=== PATIENT | male | born 1975 | race Caucasian/White ===

== ENCOUNTER 2019-08-31 07:39 | Outpatient (CLI) | payer OTHER, SELFPAY ==
--- NOTE | ~2019-08-31 | US_ITS ---
US right upper quadrant INDICATION: Follow-up gallbladder polyp PROCEDURE: Realtime right upper abdominal ultrasound. COMPARISON: No prior studies for comparison. FINDINGS: The pancreas is normal without focal mass or pancreatic ductal dilation. There is fatty in filtration of the liver. There is a 9 mm gallbladder polyp. The gallbladder is normal without stones, gallbladder wall thickening or pericholecystic fluid. Comm on bile duct measures 4 mm. No sonographic Rao's sign. IMPRESSION: 1: Gallbladder polyp measuring 9 mm. Follow-up ultrasound in 12 months recommended to assess stabilit y. 2: Fatty infiltration of the liver. Reviewed, dictated and finalized at location A. IMPRESSION: 1: Gallbladder polyp measuring 9 mm. Follow-up ultrasound in 12 months recommen ded to assess stability. 2: Fatty infiltration of the liver.
== END 2019-08-31 07:40 | disposition home or self-care (01) ==
LOC: ANHIMG 07:42
PROVIDERS: PCP Internal Medicine; Visit Provider Surgery
DX: K82.4 Cholesterolosis of gallbladder (principal); K76.0 Fatty (change of) liver, not elsewhere classified
CPT/HCPCS: 76705

== ENCOUNTER 2019-12-14 09:27 | Emergency (ER) | payer OTHER, SELFPAY ==
--- NOTE | ~2019-12-14 | US_ITS ---
EXAMINATION: US venous doppler LE EXAM DATE: 12/14/2019 11:29 INDICATION: Bilateral leg edema, swelling. TECHNIQUE: Multiple grayscale, color flow and Doppler images of the lower extremity deep venous syste ms bilaterally were obtained and reviewed. Comparison is made to prior examination from 06/19/2018. FINDINGS: Right side: The right common femoral, femoral and profunda veins demonstrate normal color flow, respi ratory variation, augmentation and compressibility. Compressibility, color flow confirmed within the right popliteal, posterior tibial, peroneal, and greater saphenous veins. Left side: The left common femoral, femoral and profunda veins demonstrate normal color flow, respira tory variation, augmentation and compressibility. Compressibility, color flow confirmed within the l eft popliteal, posterior tibial, peroneal, and greater saphenous veins. IMPRESSION: 1. No lower extremity deep venous thrombosis bilaterally. Reviewed, dictated and finalized at location A.
--- NOTE | ~2019-12-14 | XR_ITS ---
EXAMINATION: XR chest 2V DATE: 12/14/2019 10:00 INDICATION: Swelling of the legs and feet TECHNIQUE: PA and lateral views of the chest are obtained. COMPARISON: 11/27/2017 FINDINGS: The lungs are free of acute opacities. There is no pleural effusion or pneumothorax. The ca rdiomediastinal silhouette is normal. The visualized bones and soft tissues are unremarkable. IMPRESSION: 1. No acute cardiopulmonary abnormality. Reviewed, dictated and finalized at location B.
[2019-12-14 09:37] VITALS: BP 213/99; PULSE 96; RESP 22; TEMP 36.3; O2SAT 98
--- NOTE | 2019-12-14 09:41 | ECG_ITS ---
Measurements Intervals [place] Rate: 90 P: 23 UT: 192 QRS: 6 QRSD: 110 T: 29 QT: 337 QTc: 414 Interpretive Statements SINUS RHYTHM INCOMPLETE RIGHT BUNDLE BRANCH BLOCK BASELINE ARTIFACT- I, II, III, AVR, AVL, AVF BORDERLINE ECG Electronically Signed On 12-14-2019 9:57:14 CDT by Carter Shahid D.O.
[2019-12-14 10:03] LABS: Basophils Percent Auto 0.4 % (0.2-1.2); Eosinophils Absolute Auto 0.4 K/mm3 (0-0.3); Eosinophils Percent Auto 5.2 % (0-4.4); Hematocrit 40.4 % (42.0-52.0); Hemoglobin 11.7 g/dL (14.0-18.0); Immature Granulocyte Absolute 0.12 K/mm3 (0.00-0.031); Immature Granulocyte Percent A 1.6 % (0-0.5); Lymphocytes Absolute Auto 1.31 K/mm3 (0.9-3.2); Lymphocytes Percent Auto 17.6 % (18.3-44.2); Mean Corpuscular Hemoglobin 24.8 pg (26-34); Mean Corpuscular Volume 85.8 fl (80-100); Mean Platelet Volume 9.8 fl (7.4-10.4); Monocytes Absolute Auto 0.6 K/mm3 (0.1-0.6); Monocytes Percent Auto 7.7 % (2.6-8.5); Neutrophils Percent Auto 67.5 % (45.5-73.1); Nucleated Red Blood Cells Perc 0.3 % (0.0-0.2); Platelet Count Result 185 k/mm3 (150-375); Red Blood Count 4.71 M/mm3 (4.6-6.20); Red Cell Distribution Width 17.8 % (11.5-14.5); White Blood Count 7.4 K/mm3 (4.5-10.0)
[2019-12-14 10:14] LABS: Anion Gap 16.5 mmol/L (7-16); Blood Urea Nitrogen 15 mg/dL (9-20); Calcium 9.2 mg/dL (8.4-10.2); Carbon Dioxide 27 mmol/L (22-30); Chloride 97 mmol/L (98-107); Estimated CRCL calculation 151 ml/min; Estimated Glomerular Filt Rate > 60; Glucose 163 mg/dL (75-110); Potassium 3.5 mmol/L (3.4-5.0); Sodium 137 mmol/L (137-145)
[2019-12-14 10:14] LABS: INR 1.1; Prothrombin Time 13.4 Seconds (11.1-14.7)
[2019-12-14 10:15] LABS: Partial Thromboplastin Time 26.9 SECONDS (22.3-36.8)
[2019-12-14 10:28] LABS: NT Pro B Type Natriuretic Pept 147 PG/ML (5-100); Troponin I < 0.012 ng/mL (0.000-0.034)
--- NOTE | 2019-12-14 10:28 | ED.LOWEXIN ---
HPI - Extremity Injury (Lower) General Chief Complaint: Extremity Injury, Lower <Carolee Mccauley PA-C - Last Filed: 12/14/19 12:35> Stated Complaint: Swelling to lower extremities <THANH Corona Last Filed: 12/14/19 12:35> Time Seen by Provider: 12/14/19 10:10 <Carolee Mccauley PA-C - Last Filed: 12/14/19 12:35> Source: patient <THANH Corona Last Filed: 12/14/19 12:35> Mode of arrival: ambulatory <THANH Corona Last Filed: 12/14/19 12:35> Limitations: no limitations <THANH Corona Last Filed: 12/14/19 12:35> History of Present Illness HPI Narrative: This is a 44 year old male that presents to the ER for lower extremity edema x 3 months. Reports worsening recently with weeping to the lower extremities. Also reports shortness of breath which is chronic for him. Reports history of asthma and HERMILA. Denies fever, cough, history of DVT, or recent travel or surgery. <THANH Corona Last Filed: 12/14/19 12:35> Related Data Home Medications: Home Medications Medication Instructions Recorded Confirmed fluticasone propionate 50 See Rx Instructions NASAL DAILY PRN 03/15/19 mcg/actuation nasal spray,suspension lamotrigine 100 mg tablet 100 mg PO BID 03/15/19 lancets #50 each 03/15/19 lansoprazole 30 mg capsule,delayed 30 mg PO DAILY 03/15/19 release thiamine HCl (vitamin B1) 100 mg 100 mg PO DAILY 03/15/19 tablet <Carolee Mccauley PA-C - Last Filed: 12/14/19 12:35> Allergies/Adverse Reactions: Allergies Allergy/AdvReac Type Severity Reaction Status Date / Time No Known Allergies Allergy Verified 12/14/19 09:53 <THANH Corona Last Filed: 12/14/19 12:35> Review of Systems Review of Systems: Narrative: CONSTITUTIONAL: Denies fever CARDIOVASCULAR: Reports edema. Denies chest pain RESPIRATORY: Reports dyspnea. Denies cough <Carolee Mccauley PA-C - Last Filed: 12/14/19 12:35> All systems reviewed & are unremarkable except as noted in HPI and below <Carolee Mccauley PA-C - Last Filed: 12/14/19 12:35> [facility] Social History Social History: Social History Smoking status: Former smoker Smoking end date: 05/19/19 Alcohol intake: current <Carolee Mccauley PA-C - Last Filed: 12/14/19 12:35> Exam Narrative: Exam Narrative: GENERAL: Well-appearing, obese, and in no acute distress. HEAD: Normocephalic, atraumatic. EYES: EOMI. ENT: Nares clear, no rhinorrhea or epistaxis. Mucous membranes moist. Oropharynx without tonsillar hypertrophy exudate or other lesions. Bilateral TMs pearly yadav non-bulging NECK: Supple. No adenopathy or masses. No carotid bruits or JVD CHEST: Clear to auscultation. No respiratory distress. No wheezes rales or rhonchi HEART: Regular rate and rhythm. No murmur heard. Normal peripheral pulses. EXTREMITIES: Normal range of motion. 1+ pitting edema to the bilateral lower extremities with venous stasis dermatitis SKIN: Warm, dry, no rash. NEURO: No focal deficits. Alert and oriented x3. PSYCH: Normal mood and affect <Carolee Mccauley PA-C - Last Filed: 12/14/19 12:35> Course [employer]/PA Physician Supervision Attestation for Carolee Mccauley at 12:13 PM. Patient comes in for chronic leg swelling. [id number] with the patient for 15 minutes. Instructed him on the lymphedema of his legs being caused by the truncal obesity. Suggested to him that he get the gastric sleeve, and he says his Medicaid insurance will not pay for that. He said he would rather try diet and exercise. He takes an anxiety medicine at home, and has sleep apnea. Here the anxiety medicine caused hypo-ventilation and hypoxia while he was resting. We will admit him for monitoring until the benzos are out of his system. Elvia Kelly <Elvia Kelly MD - Last Filed: 12/14/19 12:26> Consultations Consultation #1: Call Dr. Franklin Vazquez for admissi
[2019-12-14 10:37] VITALS: BP 188/115; PULSE 91; RESP 26; O2SAT 91
--- NOTE | 2019-12-14 10:42 | PC.NURSE ---
Patients O2 dropped to 84% on room air at this time, patient denies being more SOB or having chest pain. Patient placed on 2L O2 NC at now at 94%. IVÁN Mccauley aware at this time.
[2019-12-14 11:33] LABS: Alveolar/Arterial O2 Gradient 33.9 mmHg; Base Excess ABG 3.3 mEq/l (+/-2.0); Carboxyhemoglobin 1.2 % THb (0-2.0); Fractional Inspired Oxygen 28 %; HCO3 ABG 30.6 mEq/l (22.0-26.0); Methemoglobin ABG 0.1 %THb (0-1.5); Oxygen Content ABG 16.9 %vol (16.0-22.0); Oxygen Saturation ABG 96.8 % (95.0-100.0); Oxyhemoglobin 94.7 % THb (90.0-100.0); PCO2 ABG 58.9 mmHg (35.0-45.0); PO2 ABG 96.2 mmHg (80.0-100.0); PO2 FiO2 Ratio Arterial Blood 3.44 %; Total Hemoglobin 12.6 g/dL (12.0-18.0); pH ABG 7.333 (7.350-7.450)
[2019-12-14 11:34] LABS: Device NASAL CANNULA; Modified Allen's Test Pass; Site Drawn LEFT RADIAL
[2019-12-14 11:37] VITALS: BP 155/85; PULSE 95; RESP 29; O2SAT 96
[2019-12-14 12:57] VITALS: BP 157/76; PULSE 94; RESP 26; O2SAT 98
== END 2019-12-14 12:58 | disposition home or self-care (01) ==
PROVIDERS: Physician Assistant; Emergency Provider Emergency Medicine; PCP Internal Medicine
DX: I89.0 Lymphedema, not elsewhere classified (principal); R09.02 Hypoxemia; G47.33 Obstructive sleep apnea (adult) (pediatric); E66.01 Morbid (severe) obesity due to excess calories; Z68.41 Body mass index [BMI] 40.0-44.9, adult; R79.89 Other specified abnormal findings of blood chemistry; J45.909 Unspecified asthma, uncomplicated; Z87.891 Personal history of nicotine dependence; I45.10 Unspecified right bundle-branch block
CPT/HCPCS: 36415; 36600; 71046; 80048; 82375; 82805; 83050; 83880; 84484; 85025; 85380; 85610; 85730; 93005; 93970; 96374; 99284; J2060

== ENCOUNTER 2020-01-12 14:08 | Outpatient (RCR) | payer OTHER, SELFPAY ==
--- NOTE | 2020-01-12 15:44 | PTOPEVAL ---
PHYSICAL THERAPY EVALUATION 01-12-2020 and HOLD PT services The PT evaluation was performed today for the diagnosis of B LE lymphedema. Rigo has open wounds over the L lower leg and calf. These need to be healed before lymphedema wraps can be initiated. Thank you for referring Rigo Ramsey to [facility].? PT treatment will be on HOLD until the wounds over his L LE are healed and a new script is received. Please review, sign, date and return this plan of care JAH. I agree with and certify that the following plan of care is medically necessary. Referring Physician Date Attending Provider: DO Jimmie MccarthyPT Outpatient Evaluation Start: 01/12/20 14:24 Document 01/12/20 14:25 GIOVANNY (Rec: 01/12/20 15:31 GIOVANNY [id number]) Therapy Assessment Status Assessment Status Assessment Status Evaluation Outpatient Past Medical History Past Medical History Source of Past Medical History Patient Neurological History Hx Seizures Yes: as child had seizures; stopped,then again start 2009- med control Hx Other Neurological Disorders Yes: concussion from fall due to seizure Cardiovascular History Hx Cardiac Catheterization Yes: few years ago-- no issues /clear Hx Hypercholesterolemia Yes: meds control Hx Hypertension Yes: meds control Respiratory History Hx Sleep Apnea Yes: have CPAP, problems using due to claustrophobia Hx Other Respiratory Disorders Yes: SOB due to panic attacks and anxiety Gastrointestinal History Hx Polyps Yes: surgical removal ~9x; non cancerous Genitourinary History Hx Genitourinary Disorders No Significant History Musculoskeletal History Hx Back Pain Yes: see neurologist for back pain and meds Hx Orthopedic Surgery Yes: R ankle ORIF; B carpal tunner surgery Feb 2019 Hx Other Musculoskeletal Disorders Yes: obesity Endocrine History Hx Diabetes Yes: new diagnosis- meds control HEENT History Hx HEENT Disorders No Significant History Psychosocial History Hx Anxiety Yes: on meds Pain History Has Past Pain Affected Your Daily Life Yes History of Long-Term Prescription Pain Yes Medication Use (Opiates) Other History Hx Other Medical Conditions Yes: staph infection R arm ~ 5 yr ago-hospitalized Evaluation Information Problem Diagnosis B LE lymphedema Onset August 2019 Subjective Information recent ER visit due to leg Query Text:As Reported By Patient/ swelling mid November; swelling Family
--- NOTE | 2020-01-13 11:44 | PCPTNOTE ---
I called pt and informed him that I left a voice message at Dr Larson's office, that pt needs wound care prior to start lymhedema wraps to L LE;
--- NOTE | 2020-01-14 16:27 | PCPTNOTE ---
I talked with pt on phone and with wound care nurse Michelle; They have orders for pt to be seen in the [facility], but awaiting insurance authorization. I called pt and told him this.
--- NOTE | 2020-03-10 10:26 | PCPTNOTE ---
PHYSICAL THERAPY DISCHARGE 03-10-2020 Attending Provider: Julien Larson DO Patient:Rigo Ramsey Date of :1975 Rigo has not returned for any further treatments since the evaluation on 01/12/2020, due to having an open wound on his leg; therefore he will be discharged at this time. The goals were not assessed. Thank you [facility]. Please review, sign, date and return this discharge summary JAH. I have been updated about the patient's current status and I agree with discharge from the above service at this time. Referring Physician Date
== END 2020-03-13 10:56 | disposition home or self-care (01) ==
LOC: ANHPT 14:08
PROVIDERS: PCP Internal Medicine; Visit Provider Internal Medicine
DX: I89.0 Lymphedema, not elsewhere classified (principal)
CPT/HCPCS: 97161

== ENCOUNTER 2020-04-24 07:37 | Outpatient (RCR) | payer OTHER, SELFPAY ==
[2020-01-26 13:57] VITALS: BMI 42.7
--- NOTE | 2020-02-01 14:17 | PCWOUND ---
Wocn Note Patient called to cancel appointment for 02-02-20 due to care troubles. Patient states he will call back when he is able to reschedule.
--- NOTE | 2020-02-22 11:32 | PCWOUND ---
WOCN NOTE Patient left message to cancel appointment for 02-23-20, and wants more home supplies ordered. left patient message to reschedule. supplies order can notbe processed until 02-25-20 due to order is for 30 days. will enter then.
--- NOTE | 2020-04-24 14:49 | PCWOUND ---
WOCN NOTE patient seen by wound care for treatment of venous stasis ulcers to the left lower leg. Wounds with large amount of exudate present that patient needs to change his dressings twice a day. Patient used 1 mepilex transfer per change (60/month), 2 ABD pads per change (120/month), and 1 kerlex roll per change (60/month).
== END 2020-04-25 23:59 | disposition home or self-care (01) ==
LOC: ANHWOC 07:37
PROVIDERS: PCP Internal Medicine; Visit Provider Internal Medicine
DX: L97.909 Non-pressure chronic ulcer of unspecified part of unspecified lower leg with unspecified severity (principal)
CPT/HCPCS: 99212; 99213; G0463

== ENCOUNTER 2020-05-02 08:09 | Outpatient (CLI) | payer OTHER, SELFPAY ==
--- NOTE | 2020-05-02 08:12 | ECHO_ITS ---
Patient Info Name: Rigo Ramsey Age: 44 years : 1975 Gender: Male Ht: 73 in Wt: 340 lbs BSA: 2.89 m2 HR: 84 bpm BP: 138 / 86 mmHg Technical Quality: Poor Exam Date: 05/02/2020 8:23 AM Exam Location: [facility] Patient Status: Outpatient Admit Date: 05/02/2020 Staff Ordering Physician: Carter Shahid DO Valet Attendant: Tamiko Leyva RDCS Attending Provider: Carter Shahid DO Referring Physician: Kleber DOUGLAS; Exam Type: CA echo dop color flow w con Study Info Indications R60.0 - Localized edema Contrast/Agitated Saline Contrast/Ag. Saline: Definity Amount: 2.00 ml Administered By: Junior Morgan RN New IV Access: Inner Forearm and Right Site Condition: No extravasation and IV removed Reason for Poor Study: patient body habitus Summary 1. Left ventricular chamber dimension is normal. 2. Definity contrast administered improved wall motion interpretation. 3. Left ventricular systolic function is normal, estimated at 55-60%. 4. There is moderately increased left ventricular wall thickness. 5. The left ventricular diastolic function is grade I diastolic dysfunction. 6. E/e' 8 is minimally elevated. 7. No pulmonary hypertension, estimated pulmonary arterial systolic pressure is 19 mmHg. Left Ventricle E/e' 8 is minimally elevated. Definity contrast administered improved wall motion interpretation. Left ventricular chamber dimension is normal. Left ventricular systolic function is normal, estimated at 55-60%. There is moderately increased left ventricular wall thickness. The left ventricular diastolic function is grade I diastolic dysfunction. Right Ventricle Right ventricular chamber dimension is normal. Right ventricular systolic function is normal. Left Atria Left atrial chamber dimension is normal. Right Atria Right atrial chamber dimension is normal. Aortic Valve The aortic valve is trileaflet. There is no aortic valve stenosis. There is no aortic valve regurgitation. Pulmonic Valve There is no pulmonic regurgitation. Mitral Valve There is no mitral valve stenosis. There is no mitral valve regurgitation. Tricuspid Valve There is no tricuspid valve regurgitation. No pulmonary hypertension, estimated pulmonary arterial systolic pressure is 19 mmHg. Pericardium/Pleural There is no pericardial effusion. Inferior Vena Cava Normal inferior vena cava with >50% collapse upon inspiration consistent with normal right atrial pressure, 5 mmHg. Aorta The aortic root size at the sinus of Valsalva is normal. Left Ventricular Outflow Tract Name Value Normal LVOT 2D LVOT Diameter 2.24 cm LVOT Doppler LVOT Peak Velocity 114.40 cm/s LVOT Peak Gradient 5 mmHg LVOT Mean Gradient 3 mmHg LVOT VTI 19.29 cm LVOT VTI/AV VTI Ratio 0.90 LVOT Stroke Volume 76.12 ml LVOT CO 5.86 l/min LVOT CI
[2020-05-02 10:46] LABS: Hematocrit 41.9 % (42.0-52.0); Hemoglobin 12.7 g/dL (14.0-18.0)
[2020-05-02 11:05] LABS: Alanine Aminotransferase 12 U/L (4-50); Albumin Level 4.6 g/dL (3.5-5.1); Alkaline Phosphatase 42 U/L (38-126); Anion Gap 15 mmol/L (8-16); Aspartate Amino Transferase 19 U/L (17-59); Bilirubin,Total 0.5 mg/dL (0.2-1.3); Blood Urea Nitrogen 42 mg/dL (9-20); Calcium 10.2 mg/dL (8.4-10.2); Carbon Dioxide 26 mmol/L (22-30); Chloride 96 mmol/L (98-107); Cholesterol 212 mg/dL (0-200); Estimated Glomerular Filt Rate 44; Glucose 186 mg/dL (75-110); HDL Direct 28 mg/dL; Potassium 4.2 mmol/L (3.4-5.0); Sodium 137 mmol/L (137-145); Triglycerides 509 mg/dL (<150)
[2020-05-02 11:16] LABS: LDL Cholesterol Direct 100 mg/dL
[2020-05-02 15:48] LABS: Iron 39 ug/dL (49-181)
[2020-05-02 16:01] LABS: Percent Iron Saturation 8 % (20-50)
[2020-05-05 14:39] LABS: Hemoglobin A1C 9.1 % (<5.7)
[2020-05-06 10:27] LABS: Testosterone Total 111 ng/dL (250-1100)
== END 2020-05-02 08:10 | disposition home or self-care (01) ==
LOC: ANHCARD 08:10
PROVIDERS: PCP Internal Medicine; Visit Provider Internal Medicine Cardiovascular Disease
DX: E78.5 Hyperlipidemia, unspecified (principal); E11.69 Type 2 diabetes mellitus with other specified complication; E66.9 Obesity, unspecified; I10 Essential (primary) hypertension; E29.1 Testicular hypofunction; D64.9 Anemia, unspecified; R60.0 Localized edema
CPT/HCPCS: 36415; 80053; 80061; 83036; 83540; 83550; 83735; 84403; 85014; 85018; C8929